=== PATIENT | female | born 1955 | race Caucasian/White ===

== ENCOUNTER 2018-01-26 10:01 | Outpatient (CLI) | payer MEDICARE, MEDICAID ==
[~2018-01-26] VITALS: Ht 157.5 cm; Wt 75.7 kg
[~2018-01-26 10:01] MED LIST: BACLOFEN10 MG ORAL; DEPRESSION MED; IBUPROFEN200 MG ORAL; ZANTAC150 MG ORAL
[2018-01-26 10:42] VITALS: BP_SYST 100; BP_SYST 120; BP_DIAS 52; BP_DIAS 78
[2018-01-26] MEDS ORDERED: BP MED UNKNOWN (10:45)
[2018-01-26] MEDS ORDERED: UNOBMED (14:08)
--- NOTE | 2018-01-27 09:29 | GI Initial Consult Note ---
History of Present Illness General Date patient seen: Jan 26, 2018 Time patient seen: 09:24 Referring physician: None Reason for Consultation: Colonoscopy Screening Present Illness HPI 62 year old female patient presents today for routine colonoscopy. Had her last colonoscopy approximately 5 years ago noted with gastritis and internal hemorrhoids. Has c/o of generalized weakness. Denies any abdominal pain, N/V/ D or constipation. Denies any unintentional weight loss or changes in dietary habits. No signs of abuse or neglect. Patient is not fall risk. Home Meds Reported Medications Unable to Obtain Medications (UNABLE TO OBTAIN MEDS) 1 Ea Ea 01/26/18 Discontinued Reported Medications Ibuprofen (IBUPROFEN*) 200 Mg Tablet, 200 MG ORAL PRN, TAB 01/11/13 Baclofen* (BACLOFEN*) 10 Mg Tablet, 10 MG ORAL PRN, TAB 01/11/13 Ranitidine Hcl* (ZANTAC*) 150 Mg Tablet, 300 MG ORAL PRN, TAB 01/11/13 Med list reviewed/reconciled: Yes Allergies: Coded Allergies: ACETAMINOPHEN (Verified Allergy, Severe, 01/11/13) passout HYDROCODONE BIT (Verified Allergy, Severe, 01/11/13) passout Patient History History Provided By: Patient, Medical Record [facility] Narrative PAST MEDICAL HISTORY: Significant for - 1. Acid reflux disease. 2. Hypercholesterolemia. 3. Back pain. PERSONAL AND SOCIAL HISTORY: No history of tobacco, alcohol or illicit drug use. PAST SURGICAL HISTORY: None. Review of Systems All Other Systems: negative except mentioned in HPI Physical Exam Vital Signs Date Time Temp Pulse Resp B/P (MAP) Pulse Ox O2 Delivery O2 Flow Rate FiO2 01/26/18 10:42 97.5 51 100/52 95 97.5 Sp02 EP Interpretation: reviewed, normal General Appearance: well appearing, no apparent distress, alert Head: normocephalic EENT: PERRL/EOMI, normal ENT inspection Neck: supple Respiratory: normal breath sounds, no respiratory distress Cardiovascular: normal rate Gastrointestinal: normal inspection, non tender, soft, normal bowel sounds, non -distended Rectal: deferred Genitourinary: no CVA tenderness Musculoskeletal: normal inspection, back normal Neurologic: normal inspection, alert, oriented x3, responsive Psychiatric: normal inspection, judgement/insight normal, memory normal Skin: normal inspection, normal color, no rash, warm/dry, palpation normal, well hydrated Lymphatic: normal inspection, no adenopathy GI: Plan Problems: (1) Depression (2) GERD (gastroesophageal reflux disease) (3) Gastritis (4) Hemorrhoids (5) HLD (hyperlipidemia) (6) Colonoscopy planned Plan EGD/colonoscopy scheduled 02/03/18. - CLD & (Nulytely/Suprep/Movi-Prep) prep instructions given and acknowledged by patient. - NPO @ [place] day prior procedure explained. Seen with Dr. Solano. Thank you for this patient referral. The patient was seen and examined at bedside and all new and available data was reviewed in the patients chart. I agree with the above findings, impression and plan. (Patient seen earlier today. Signature stamp does not reflect patient encounter time.). - MD Kiesha Nichols[facility], [place] Jan 27, 2018 09:29
== END 2018-01-26 10:31 | disposition home or self-care (01) ==
LOC: PAN 10:01
DX: R53.1 Weakness (principal); F32.9 Major depressive disorder, single episode, unspecified; K21.9 Gastro-esophageal reflux disease without esophagitis; K29.70 Gastritis, unspecified, without bleeding; K64.9 Unspecified hemorrhoids; E78.5 Hyperlipidemia, unspecified; Z88.6 Allergy status to analgesic agent; E78.00 Pure hypercholesterolemia, unspecified
CPT/HCPCS: 99201

== ENCOUNTER 2018-02-03 06:56 | Day surgery (SDC) | payer MEDICARE, MEDICAID ==
[~2018-02-03] VITALS: Ht 165.1 cm; Wt 79.4 kg
[2018-02-03] VITALS (8 sets, daily range): BP systolic 112–148; BP diastolic 58–72
[~2018-02-03 06:56] MED LIST changes: +ATORVASTATIN CA40 MG ORAL; +Atropine Inj 1mg/10ml Syr IV PRN; +BP MED UNKNOWN; +DiphenhydrAMINE 50mg/ml Inj IVP PRN; +LEXAPRO10 MG ORAL; +Labetalol 5mg/ml 20ml vial IV PRN; +Midazolam 2mg/2ml Inj IVP PRN; +UNOBMED; +fentaNYL 100 mcg/2 mL IV PRN
--- NOTE | 2018-02-03 06:58 | Anethesia Preoperative Eval ---
Anesthesia Pre-op PMH/ROS General Date of Evaluation: Feb 03, 2018 Time of Evaluation: 06:54 Anesthesiologist: марина ASA Score: ASA 3 Mallampati Score Class I : Soft palate, uvula, fauces, pillars visible Class II: Soft palate, uvula, fauces visible Class III: Soft palate, base of uvula visible Class IV: Only hard plate visible Mallampati Classification: Class II Surgeon: yoana Diagnosis: gerd/colon screening Surgical Procedure: egd/colonoscopy Anesthesia History: none Social History: smoking - nonsmoker Family History: no anesthesia problems Allergies: Coded Allergies: ACETAMINOPHEN (Verified Allergy, Severe, 01/11/13) passout HYDROCODONE BIT (Verified Allergy, Severe, 01/11/13) passout Uncoded Allergies: eggplant (Allergy, Severe, 02/03/18) nausea/ vomiting, redness, diziness Medications: see eMAR Past Medical History Cardiovascular: Reports: arrhythmia, other - hyperlipidemia Gastrointestinal/Genitourinary: Reports: GERD Neurologic/Psychiatric: Reports: depression/anxiety Endocrine: Reports: DM Anesthesia Pre-op Phys. Exam Physician Exam Last Vital Signs Date Time Temp Pulse Resp B/P (MAP) Pulse Ox O2 Delivery O2 Flow Rate FiO2 02/03/18 07:25 Room Air 02/03/18 07:20 97.0 69 18 112/60 (77) 98 97.0 Constitutional: NAD Neurologic: CN 2-12 intact Cardiovascular: RRR Respiratory: CTA Gastrointestinal: S/NT/ND Airway Exam Mallampati Score: Class II MO: full Neck: flexible TMD: 2fb ROM: full Anesthesia Pre-op A/P Risk Assessment & Plan Assessment: asa3 Plan: mac Status Change Before Surgery: No Pre-Antibiotics Drug: Ludmila Machado MD Feb 03, 2018 06:58
[2018-02-03] MEDS ORDERED: Lidocaine 1% MPF 10mg/ml 5ml ONE (08:30)
[2018-02-03] MEDS ORDERED: Propofol 200mg/20ml IV ONE (08:30)
--- NOTE | 2018-02-03 09:00 | Pre-Procedure Note/Attestation ---
Pre-Procedure Note/Attestation Complete Prior to Procedure Planned Procedure: not applicable Procedure Narrative: esophagogastroduodenoscopy and colonoscopy Indications for Procedure Pre-Operative Diagnosis: screening colon, GERD Attestation I attest that I discussed the nature of the procedure; its benefits; risks and complications; and alternatives (and the risks and benefits of such alternatives ), prior to the procedure, with the patient (or the patient's legal service support representative). I attest that, if there was a reasonable possibility of needing a blood transfusion, the patient (or the patient's legal service support representative) was given the [facility] standardized written summary, pursuant to the [place] Blood Safety Act ([place] Health and Safety Code # 1645, as amended). I attest that I re-evaluated the patient just prior to the surgery and that there has been no change in the patient's H&P, except as documented below: Charles Solano MD Feb 03, 2018 09:00
--- NOTE | 2018-02-03 09:00 | Short Stay Surgery H&P ---
History of Present Illness History of Present Illness Chief Complaint see recent office note HPI Danielle Nelson is a 63 year old female who was admitted on for Colon Screening,Gerd Patient History Allergies: Coded Allergies: ACETAMINOPHEN (Verified Allergy, Severe, 01/11/13) passout HYDROCODONE BIT (Verified Allergy, Severe, 01/11/13) passout Uncoded Allergies: eggplant (Allergy, Severe, 02/03/18) nausea/ vomiting, redness, diziness Medication History Scheduled Atorvastatin Calcium* (Atorvastatin Calcium*), 40 MG ORAL BEDTIME, (Reported) Escitalopram Oxalate* (Lexapro*), 10 MG ORAL DAILY, (Reported) Physical Exam Vital Signs Last Vital Signs Date Time Temp Pulse Resp B/P (MAP) Pulse Ox O2 Delivery O2 Flow Rate FiO2 02/03/18 07:25 Room Air 02/03/18 07:20 97.0 69 18 112/60 (77) 98 97.0 Plan Attestation Are the patient's medical conditions optimized for surgery? Charles Solano MD Feb 03, 2018 09:00
--- NOTE | 2018-02-03 09:29 | Endoscopy Procedure Note ---
Endoscopy Procedure Note General Indication for Procedure: screening colon, GERD Procedures Performed: EGD, colonoscopy Operative Findings/Diagnosis: 2 colon polyps, gastritis Specimen: yes Pt Tolerated Procedure Well: Yes Estimated Blood Loss: none Anesthesia Anesthesiologist: mariola Anesthesia: MAC Inserted Devices Implant(s) used?: No Quality Quality of Bowel Preparation: Excellent Did scope reach the cecum?: Yes Was there any complications?: No GI Core Measures 50 yrs or older w/o bx or poly: No 10yrs. F/U not recommended: Yes If not recommended, why?: Above average risk 10 yrs. F/U needed: Yes 18 years or older w/prev. colo: Yes <3yrs. since last colonoscopy: No Charles Solano MD Feb 03, 2018 09:28
--- NOTE | 2018-02-03 09:44 | Immediate Post-Op Evaluation ---
Immediate Post-Op Evalulation Immediate Post-Op Evalulation Procedure: egd/colonoscopy/bx Date of Evaluation: Feb 03, 2018 Time of Evaluation: 09:42 IV Fluids: 350ml 0.9ns Blood Products: none Estimated Blood Loss: neglgible Blood Pressure Systolic: 108 Blood Pressure Diastolic: 63 Pulse Rate: 58 Respiratory Rate: 18 O2 Sat by Pulse Oximetry: 100 Temperature (Fahrenheit): 97.4 Pain Score (1-10): 0 Nausea: No Vomiting: No Complications none Patient Status: awake, reacts, patent Hydration Status: adequate Drug: Ludmila Machado MD Feb 03, 2018 09:43
--- NOTE | 2018-02-03 09:45 | 48 Hour Post Anesthesia Eval ---
Post Anesthesia Evaluation Procedure: egd/colonoscopy/bx Date of Evaluation: Feb 03, 2018 Time of Evaluation: 09:44 Blood Pressure Systolic: 111 0: 66 Pulse Rate: 59 Respiratory Rate: 18 Temperature (Fahrenheit): 97.4 O2 Sat by Pulse Oximetry: 100 Airway: patent Nausea: No Vomiting: No Pain Intensity: 0 Hydration Status: adequate Cardiopulmonary Status: stable Mental Status/LOC: patient returned to baseline Post-Anesthesia Complications: none Follow-up care needed: N/A Ludmila Michele MD Feb 03, 2018 09:45
--- NOTE | 2018-02-03 10:30 | Procedure Note ---
DATE OF PROCEDURE: 02/03/2018 SURGEON: Charles Solano M.D. ANESTHESIOLOGIST: Dr. Mcneil. PROCEDURE: Upper endoscopy with biopsy and colonoscopy with snare polypectomy. ANESTHESIA: Per Dr. Mcneil. INSTRUMENT: Olympus adult flexible upper endoscope and colonoscope. INDICATION: Chronic GERD, screening colonoscopy. The procedure, risks, benefits, and possible consequences, including hemorrhage, aspiration, perforation and infection, and alternative treatments, were explained to the patient/legal guardian by Dr. Charles Solano and the patient/legal guardian understood and accepted these risks. DESCRIPTION OF PROCEDURE: After informed consent was obtained and the patient was adequately sedated, Olympus upper endoscope was advanced from the mouth into the second portion of duodenum and retroflexion was performed in the stomach. The patient had evidence of multiple erosions in the antrum without any obvious ulcerations. No active bleeding. Random biopsy from antrum and body was obtained to rule out H. pylori infection. The rest of upper endoscopic examination grossly looked within normal limits. At this time, the upper endoscope was retrieved. The patient was turned over for colonoscopy. First, rectal exam was performed which was normal. Then, the scope was advanced from the rectum into the cecum documented by the appendiceal orifice, ileocecal valve, and right upper quadrant palpation. Quality of prep was very good. The patient had two polyps in the mid transverse colon, one of them was measured roughly about 4-5, the other one was big and maybe 7 mm, both removed with snare polypectomy technique. The rest of the exam showed within normal limit. Retroflexion of rectum showed no obvious large internal hemorrhoids. SUMMARY OF FINDINGS: 1. Two colonic polyps removed, see above for details. 2. Gastric erosions. 3. Gastritis, status post biopsy. RECOMMENDATIONS: 1. Follow up biopsy results and treat accordingly. 2. We recommend repeat colonoscopy in 5 years. Charles Solano M.D. DR: Debi JOB#: [id number] CC:
--- NOTE | 2018-02-03 16:42 | Cardiology Report ---
APPROVED REPORT EKG Measurement Heart [id number] AL [id number] Sinus bradycardia Otherwise normal ECG
== END 2018-02-03 10:50 | disposition home or self-care (01) ==
LOC: GAS 06:56
DX: Z12.11 Encounter for screening for malignant neoplasm of colon (principal); D12.3 Benign neoplasm of transverse colon; K21.9 Gastro-esophageal reflux disease without esophagitis; K29.70 Gastritis, unspecified, without bleeding; K25.9 Gastric ulcer, unspecified as acute or chronic, without hemorrhage or perforation; R00.1 Bradycardia, unspecified; E11.9 Type 2 diabetes mellitus without complications; F32.9 Major depressive disorder, single episode, unspecified; F41.9 Anxiety disorder, unspecified; Z88.6 Allergy status to analgesic agent; Z88.5 Allergy status to narcotic agent; Z91.018 Allergy to other foods
CPT/HCPCS: 43239; 45385; 82962; 93005; J2704; 94003; 94150

== ENCOUNTER 2018-02-03 11:06 | Emergency (ER) | payer MEDICARE, MEDICAID ==
[~2018-02-03] VITALS: Ht 162.6 cm; Wt 77.1 kg
[~2018-02-03 11:06] MED LIST changes: -Atropine Inj 1mg/10ml Syr IV PRN; -DiphenhydrAMINE 50mg/ml Inj IVP PRN; -Labetalol 5mg/ml 20ml vial IV PRN; -Midazolam 2mg/2ml Inj IVP PRN; -fentaNYL 100 mcg/2 mL IV PRN
[2018-02-03 11:18] VITALS: BP 136/51
--- NOTE | 2018-02-03 12:05 | Emergency Room Report ---
History of Present Illness General Chief Complaint: Vomiting Source: Patient Present Illness HPI This patient is here b/c she had nausea. No actual vomiting. Feeling anxious, lightheaded as well. Pt. had both EGD and colonoscopy today as outpt. and had been d/c from their recovery. Was waiting in parking area and has these complaints. She has PMD f/u. She has Zofran ODT prn but she did not take. No trauma. Allergies: Coded Allergies: ACETAMINOPHEN (Verified Allergy, Severe, 01/11/13) passout HYDROCODONE BIT (Verified Allergy, Severe, 01/11/13) passout Uncoded Allergies: eggplant (Allergy, Severe, 02/03/18) nausea/ vomiting, redness, diziness Patient History Now: No Nursing Documentation-PMH Hx Cardiac Problems: Yes - bradycardia Hx Diabetes: Yes - diet control Hx Cancer: No Hx Gastrointestinal Problems: No Hx Neurological Problems: No Hx Syncope: Yes - 20 times Hx Weakness: Yes Hx Neurologic Surgery: No Hx Brain Shunt: No Review of Systems Constitutional: Reports: no symptoms Eye: Reports: no symptoms ENT: Reports: no symptoms Respiratory: Reports: no symptoms Cardiovascular: Reports: no symptoms Gastrointestinal: Reports: see HPI, nausea Genitourinary: Reports: no symptoms Musculoskeletal: Reports: no symptoms Skin: Reports: no symptoms Psychiatric: Reports: no symptoms Neurological: Reports: no symptoms Endocrine: Reports: no symptoms Hematologic/Lymphatic: Reports: no symptoms Allergic: Reports: no symptoms All Other Systems: negative except mentioned in HPI Physical Exam Vital Signs Date Time Temp Pulse Resp B/P (MAP) Pulse Ox O2 Delivery O2 Flow Rate FiO2 02/03/18 11:09 97.9 68 18 136/51 99 Room Air 97.9 Sp02 EP Interpretation: reviewed, normal General Appearance: normal inspection, well appearing, no apparent distress, alert, GCS 15, non-toxic Head: normocephalic, atraumatic Eyes: bilateral eye normal inspection, bilateral eye PERRL, bilateral eye EOMI ENT: normal ENT inspection, hearing grossly normal, normal pharynx, no angioedema, normal voice, moist mucus membranes Neck: normal inspection, full range of motion, supple, no meningismus, no bony tend Respiratory: normal inspection, lungs clear, normal breath sounds, no rhonchi, no respiratory distress, no retraction, no accessory muscle use, no wheezing Cardiovascular #1: normal inspection, regular rate, rhythm, no edema Gastrointestinal: normal inspection, normal bowel sounds, non tender, soft, no mass, non-distended Musculoskeletal: gait/station normal, normal range of motion Neurologic: normal inspection, alert, oriented x3, responsive, motor strength/ tone normal Psychiatric: normal inspection, judgement/insight normal, memory normal Suicide Risk Assessment: Suicidal Ideation: No Had intent to initiate attempt: No Pt's plan for suicide attempt: No Has means to complete attempt: No Skin: normal inspection, normal color, no rash, warm/dry Medical Decision Making ER Course nausea Last Vital Signs Date Time Temp Pulse Resp B/P (MAP) Pulse Ox O2 Delivery O2 Flow Rate FiO2 02/03/18 11:18 97.9 68 18 136/51 99 Room Air 97.9 Disposition: HOME, SELF-CARE Condition: Stable Patient Instructions: Nausea and Vomiting, Adult Pawan Hernandez M.D. Feb 03, 2018 12:05
[2018-02-03 13:30] VITALS: BP 136/51
== END 2018-02-03 13:30 | disposition home or self-care (01) ==
LOC: EMR 11:45
DX: R11.0 Nausea (principal); Z98.890 Other specified postprocedural states; E11.9 Type 2 diabetes mellitus without complications; R00.1 Bradycardia, unspecified; Z88.6 Allergy status to analgesic agent; Z88.5 Allergy status to narcotic agent; Z91.018 Allergy to other foods
CPT/HCPCS: 99282

== ENCOUNTER 2018-02-22 12:54 | Outpatient (CLI) | payer MEDICARE, MEDICAID ==
--- NOTE | 2018-02-22 13:39 | GI Progress Note ---
Assessment/Plan Problems: (1) Constipation ICD Codes: K59.00 - Constipation, unspecified SNOMED: 47561943 (2) Colonic polyp ICD Codes: K63.5 - Polyp of colon SNOMED: 08540841 (3) Small intestinal bacterial overgrowth ICD Codes: K63.89 - Other specified diseases of intestine SNOMED: 955115368 (4) GERD (gastroesophageal reflux disease) ICD Codes: K21.9 - Gastro-esophageal reflux disease without esophagitis SNOMED: 450607384 (5) Gastritis ICD Codes: K29.70 - Gastritis, unspecified, without bleeding SNOMED: 2236604 Status: stable Status Narrative Seen with Dr. Solano. Assessment/Plan ppi xifaxan linzess 145 mcg RTC x3 months repeat colonoscopy x5 years The patient was seen and examined at bedside and all new and available data was reviewed in the patients chart. I agree with the above findings, impression and plan. (Patient seen earlier today. Signature stamp does not reflect patient encounter time.). - Charles Solano MD Subjective Gastrointestinal/Abdominal: Reports: no symptoms Subjective here for EGD/colonoscopy review Objective T 98.1 BP 116/61 P 73 96 RA General Appearance: WD/WN, no apparent distress, alert Cardiovascular: normal rate Respiratory/Chest: normal breath sounds, no respiratory distress Abdominal Exam: normal bowel sounds, non tender, soft Extremities: normal range of motion, non-tender Ophelia Pop NP Feb 22, 2018 13:39
[2018-02-22 13:48] VITALS: BP 116/61
== END 2018-02-22 13:24 | disposition home or self-care (01) ==
LOC: PAN 12:54
DX: K59.00 Constipation, unspecified (principal); K63.5 Polyp of colon; K63.89 Other specified diseases of intestine; K21.9 Gastro-esophageal reflux disease without esophagitis; K29.70 Gastritis, unspecified, without bleeding
CPT/HCPCS: 99212

== ENCOUNTER 2018-08-02 13:05 | Outpatient (CLI) | payer MEDICARE, MEDICAID ==
[2018-08-02 13:19] VITALS: BP 108/51
--- NOTE | 2018-08-02 14:08 | General Progress Note ---
Assessment/Plan Problem List: (1) Depression ICD Codes: F32.9 - Major depressive disorder, single episode, unspecified SNOMED: 32019135 (2) Hemorrhoids ICD Codes: K64.9 - Unspecified hemorrhoids SNOMED: 08572730 (3) HLD (hyperlipidemia) ICD Codes: E78.5 - Hyperlipidemia, unspecified SNOMED: 29666688 (4) Constipation ICD Codes: K59.00 - Constipation, unspecified SNOMED: 13263996 (5) Colonic polyp ICD Codes: K63.5 - Polyp of colon SNOMED: 61869974 (6) Gastritis ICD Codes: K29.70 - Gastritis, unspecified, without bleeding SNOMED: 1651699 (7) GERD (gastroesophageal reflux disease) ICD Codes: K21.9 - Gastro-esophageal reflux disease without esophagitis SNOMED: 831034900 (8) Small intestinal bacterial overgrowth ICD Codes: K63.89 - Other specified diseases of intestine SNOMED: 475955962 Assessment/Plan abd ua r/o gallstones Xifaxan omeprazole RTC in 3 months repeat CLN 0n 2022 Subjective ROS Limited/Unobtainable: Yes Allergies: Coded Allergies: ACETAMINOPHEN (Verified Allergy, Severe, 01/11/13) passout HYDROCODONE BIT (Verified Allergy, Severe, 01/11/13) passout Uncoded Allergies: eggplant (Allergy, Severe, 02/03/18) nausea/ vomiting, redness, diziness Objective Last 24 Hour Vital Signs Date Time Temp Pulse Resp B/P (MAP) Pulse Ox O2 Delivery O2 Flow Rate FiO2 08/02/18 13:19 98.1 64 16 108/51 95 General Appearance: alert EENT: normal ENT inspection Neck: supple Cardiovascular: normal rate Respiratory/Chest: lungs clear Abdomen: soft, hypoactive bowel sounds, tender Extremities: non-tender Charles Solano MD Aug 02, 2018 14:08
== END 2018-08-02 13:35 | disposition home or self-care (01) ==
LOC: PAN 13:05
DX: F32.9 Major depressive disorder, single episode, unspecified (principal); K64.9 Unspecified hemorrhoids; E78.5 Hyperlipidemia, unspecified; K59.00 Constipation, unspecified; K63.5 Polyp of colon; K29.70 Gastritis, unspecified, without bleeding; K21.9 Gastro-esophageal reflux disease without esophagitis; K63.89 Other specified diseases of intestine; Z91.018 Allergy to other foods
CPT/HCPCS: 99212

== ENCOUNTER 2019-05-16 13:29 | Outpatient (CLI) | payer MEDICARE, MEDICAID ==
[2019-05-16 14:10] VITALS: BP 113/58
--- NOTE | 2019-05-16 15:20 | General Progress Note ---
Assessment/Plan Problem List: (1) Constipation ICD Codes: K59.00 - Constipation, unspecified SNOMED: 65636410 (2) Colonic polyp ICD Codes: K63.5 - Polyp of colon SNOMED: 93672371 (3) Depression ICD Codes: F32.9 - Major depressive disorder, single episode, unspecified SNOMED: 00843337 (4) Gastritis ICD Codes: K29.70 - Gastritis, unspecified, without bleeding SNOMED: 3584626 (5) GERD (gastroesophageal reflux disease) ICD Codes: K21.9 - Gastro-esophageal reflux disease without esophagitis SNOMED: 066180010 (6) Hemorrhoids ICD Codes: K64.9 - Unspecified hemorrhoids SNOMED: 16210941 (7) Small intestinal bacterial overgrowth ICD Codes: K63.89 - Other specified diseases of intestine SNOMED: 089958505 Assessment/Plan: xifaxan dexilant VSL #3 Linzess 290 RTC 2 weeks Subjective ROS Limited/Unobtainable: Yes Allergies: Coded Allergies: ACETAMINOPHEN (Verified Allergy, Severe, 01/11/13) passout HYDROCODONE BIT (Verified Allergy, Severe, 01/11/13) passout Uncoded Allergies: eggplant (Allergy, Severe, 02/03/18) nausea/ vomiting, redness, diziness Objective General Appearance: alert EENT: normal ENT inspection Neck: supple Cardiovascular: normal rate Respiratory/Chest: decreased breath sounds Abdomen: normal bowel sounds, non tender, soft Extremities: non-tender Charles Solano MD May 16, 2019 15:20
[2019-05-17] MEDS ORDERED: FAMOTIDINE20 MG ORAL (08:09)
[2019-05-17] MEDS ORDERED: OMEPRAZOLE40 M1 ORAL (08:09)
[2019-05-17] MEDS ORDERED: PRAVACHOL20 MG ORAL (08:09)
== END 2019-05-16 15:30 | disposition home or self-care (01) ==
LOC: PAN 13:29
DX: K59.00 Constipation, unspecified (principal); K63.5 Polyp of colon; F32.9 Major depressive disorder, single episode, unspecified; K29.70 Gastritis, unspecified, without bleeding; K21.9 Gastro-esophageal reflux disease without esophagitis; K64.9 Unspecified hemorrhoids; K63.89 Other specified diseases of intestine; Z88.6 Allergy status to analgesic agent

== ENCOUNTER → 2019-05-23 | Outpatient (CLI) | payer MEDICARE, MEDICAID ==
[~2019-05-23] MED LIST changes: +FAMOTIDINE20 MG ORAL; +OMEPRAZOLE40 M1 ORAL; +PRAVACHOL20 MG ORAL
[2019-05-23 10:20] LABS: BLOOD UREA NITROGEN 16 mg/dL (7-18); CREATININE 0.9 MG/DL (0.55-1.30)
--- NOTE | 2019-05-23 14:28 | Diagnostic Imaging Report ---
Clinical Indication: Abdominal pain Technique: Patient given oral contrast. IV administration nonionic contrast. Venous phase spiral acquisition obtained through the abdomen and pelvis. Multiplanar reconstructions were generated. Total dose length product 1412 mGycm. CTDIvol(s) 23 mGy. Dose reduction achieved using automated exposure control Comparison: none Findings: The appendix is normal. No small bowel distention. No evidence of colonic diverticulosis or diverticulitis. No small bowel wall thickening. Distal esophagus, stomach, duodenum are unremarkable. No free or loculated intraperitoneal gas or fluid is evident. The liver is slightly diffusely hypoattenuating. No focal abnormality. The gallbladder, bile ducts, pancreas, spleen, adrenals, kidneys are unremarkable. There is incidental finding of a retroaortic left renal vein. The uterus and adnexal structures are unremarkable. No retroperitoneal or mesenteric mass or adenopathy. No pelvic mass or adenopathy. The included lung bases demonstrate posterior dependent atelectatic changes. The bones demonstrate degenerative changes of the lumbosacral junction. Impression: No acute abnormality Equivocal mild fatty hepatic changes Incidental findings as noted, including posterior dependent atelectatic pulmonary parenchymal changes, lumbosacral degenerative spondylosis, retroaortic left renal vein The CT scanner at [facility] is accredited by the [employer] and the scans are performed using protocols designed to limit radiation exposure to as low as reasonably achievable to attain images of sufficient resolution adequate for diagnostic evaluation.
== END | disposition home or self-care (01) ==
LOC: CAT 09:30 → EDSTATUS 10:30
DX: R10.9 Unspecified abdominal pain (principal); M47.9 Spondylosis, unspecified
CPT/HCPCS: 36415; 74177; 82565; 84520; Q9967